=== PATIENT | female | born 1935 | race Caucasian/White ===

== ENCOUNTER 2021-03-27 12:12 | Emergency (ER) | payer MEDICARE, OTHER ==
[~2021-03-27] VITALS: Ht 152.4 cm; Wt 45.4 kg
[2021-03-27] MEDS ORDERED: ACETAMINOPHEN ES 500 MG TABLET PO ONE (12:30)
--- NOTE | 2021-03-27 12:40 | NUR ---
PT IS IN ROOM #2A. DR RAMOS EVALUATED THE PT.
[2021-03-27 13:02] LABS: MEAN CORPUSCULAR HEMOGLOBIN 31.1 uug (24.7-32.8); MEAN CORPUSCULAR VOLUME 91.9 fL (75.5-95.3); PLATELET COUNT (AUTO) 288 K/uL (179-408)
[2021-03-27 13:09] LABS: CREATININE 0.9 mg/dL (0.6-1.3)
[2021-03-27] MEDS ORDERED: ACETAMINOPHEN ES 500 MG TABLET ONE (13:20)
[2021-03-27 13:29] LABS: BILIRUBIN,DIRECT 0.1 mg/dL (0.0-0.2); BILIRUBIN,TOTAL 0.4 mg/dL (0.2-1.0); TOTAL PROTEIN, SERUM 8.1 g/dL (6.4-8.2)
--- NOTE | 2021-03-27 15:12 | NUR ---
PT WAS D/C'd TO [facility] BY DR RAMOS [facility]. D/C INSTRUCTIONS GIVEN TO THE PT AND TO AMBULANCE EMT.
[2021-03-27 15:13] VITALS: BP 145/78
== END 2021-03-27 15:14 ==
LOC: ER 12:12
DX: S09.90XA Unspecified injury of head, initial encounter (principal); W18.39XA Other fall on same level, initial encounter; Y92.099 Unspecified place in other non-institutional residence as the place of occurrence of the external cause; M48.54XA Collapsed vertebra, not elsewhere classified, thoracic region, initial encounter for fracture; S20.212A Contusion of left front wall of thorax, initial encounter; Z96.642 Presence of left artificial hip joint; N20.0 Calculus of kidney; G20 Parkinson's disease; F02.80 Dementia in other diseases classified elsewhere, unspecified severity, without behavioral disturbance, psychotic disturbance, mood disturbance, and anxiety; Z88.0 Allergy status to penicillin; R94.31 Abnormal electrocardiogram [ECG] [EKG]
CPT/HCPCS: 36415; 70030-TC; 70450; 71250; 72125; 72192; 85025; 93005; A4663; A9150